=== PATIENT | male | born 1950 | race Caucasian/White ===

== ENCOUNTER 2024-11-21 11:55 | Emergency (ER) | payer MEDICARE ==
[~2024-11-21] VITALS: Ht 177.8 cm; Wt 74.0 kg
[2024-11-21 12:03] VITALS: BP 126/84
[2024-11-21] MEDS ORDERED: LIDOcaine HCl 1% (Local Anesth.) 20 ML VIAL STI STA (12:15)
[2024-11-21] MEDS ORDERED: POVIDONE IODINE 0.5 OZ/BTL TOP ONE (12:15)
[2024-11-21] MEDS ORDERED: SODIUM CHLORIDE 500 ML BTL IR ONE (12:15)
[2024-11-21] MEDS ORDERED: NEOMYCIN-BACITRACIN-POLYMYXIN 0.5 GM/PAK PAK TOP ONE (12:15)
[2024-11-21] MEDS ORDERED: KEFLEX500 MG PO (13:08)
[2024-11-21 13:12] VITALS: BP 126/84
== END 2024-11-21 13:15 | disposition home or self-care (01) ==
LOC: ED 11:55
PROC: 0HQGXZZ Repair Left Hand Skin, External Approach (ICD-10-PCS; principal; 2024-11-21)
DX: S61.412A Laceration without foreign body of left hand, initial encounter (principal); W26.8XXA Contact with other sharp object(s), not elsewhere classified, initial encounter